=== PATIENT | male | born 1995 | race Caucasian/White ===

== ENCOUNTER 2020-09-24 22:09 | Emergency (ER) | payer SELFPAY ==
--- NOTE | 2020-09-24 23:30 | ULT ---
Sonogram right upper quadrant HISTORY: Right upper quadrant pain. FINDINGS: The gallbladder has normal appearance without stone evident. Common duct is 0.5 cm. Liver i s diffusely echogenic without focal mass No free fluid. IMPRESSION : No evidence of gallstones or biliary obstruction. Hepato-steatosis.
[2020-09-25] MEDS ORDERED: Ketorolac Tromethamine 30 MG/ML VIAL ONE ×2 (00:21)
[2020-09-25 00:39] LABS: Bilirubin Negative (Negative); Blood, Urine Negative (Negative); Clarity Clear (Clear); Glucose, Urine (Dipstick) Normal (Negative); Ketone, Urine Negative (Negative); Leukocyte Negative Leu/uL (Negative); Nitrite Negative (Negative); Protein, Urine (Dipstick) Negative (Neg-Trace); Specific Gravity, Urine 1.023 (1.002-1.036)
== END 2020-09-25 00:53 | disposition home or self-care (01) ==
LOC: ERS 22:09
DX: R10.13 Epigastric pain (principal); R10.11 Right upper quadrant pain; F17.210 Nicotine dependence, cigarettes, uncomplicated
CPT/HCPCS: 76705; 81003; 96372; J1885